=== PATIENT | female | born 1985 | race Two or more races ===

== ENCOUNTER 2024-11-08 05:45 | Inpatient (IN) ==
--- NOTE | 2024-10-28 09:33 | Anesthesiology Consultation ---
Date of Service October 28, 2024 Assessment & Plan (1) Encounter for pre-operative examination: - Infectious disease screening: Per assessment on 10/28/24- No known recent infectious disease contacts or current infectious disease symptoms. - Audit Senior Associate needed: [place] (Marita with [facility] made aware) Chart Review Chart Review: data entry associate initiated History Surgery Operation Date: 11/08/24 09:05 Proposed Procedures p Section in LD (Delivery of baby through Abdominal incision) - Daniel Yeboah MD Height/Weight Height: 5 ft 2.99 in Weight: 94.801 kg Allergies Allergy/AdvReac Type Severity Reaction Status Date / Time keflex Allergy Mild Rash Uncoded 10/28/24 09:06 Medications Home Medications Medication Instructions Recorded Confirmed Last Taken cholecalciferol (vitamin D3) 1 tab PO DAILY 10/07/24 10/28/24 Unknown [Vitamin D3] mecobalamin (vitamin B12) 1 tab PO DAILY 10/07/24 10/28/24 Unknown prenat.vits,julieth,yrx-qojj-edadr 1 tab PO DAILY 10/07/24 10/28/24 Unknown labetalol 200 mg tablet 200 mg PO BID #180 tabs 10/09/24 10/28/24 Unknown nitrofurantoin 100 mg PO BID 7 days #14 caps 10/25/24 10/28/24 Unknown monohydrate/macrocrystals 100 mg capsule (Macrobid) Past Medical History Medical History Gestational diabetes diet controlled History of COVID-19 (2020) resolved HTN (hypertension) UTI (urinary tract infection) currently on abx Past Family History Family History Other Diabetes Hypertension No family history of adverse response to anesthesia Past Surgical History Surgical History No history of previous surgery Social History Smoking Status: Never smoker Do You Dip or Chew Tobacco: No Hx Alcohol Use: No Hx Substance Use: No substance use type: does not use
[2024-11-08] MEDS: LACTATED RINGER'S 1,000 ML IV SCH (06:02)
[2024-11-08 06:32] LABS: Hematocrit (blood only) 38.1 % (37.0-47.0); Hemoglobin 13.1 g/dl (12.0-16.0); Mean Corpuscular Hemoglobin 28.4 pg (25.0-34.0); Mean Corpuscular Volume 82.6 fL (80.0-100.0); Platelet Count 279 K/uL (130-400); RDW Standard Deviation 39.0 fL (36.4-46.3); Red Blood Count 4.61 M/uL (4.20-5.40); White Blood Count 10.88 K/ul (4.8-10.8)
[2024-11-08] MEDS: ACETAMINOPHEN 500 MG TAB PO SCH (06:33)
[2024-11-08] MEDS ORDERED: PHENYLEPHRINE HCL 10 MG/ML VIAL ONE (06:35)
[2024-11-08] MEDS ORDERED: MoRPHine SULFATE PF 1 MG/ML 10 ML AMP/VIAL ONE (06:35)
[2024-11-08] MEDS ORDERED: OXYTOCIN 10 UNITS/ML VIAL ONE ×3 (06:42)
[2024-11-08] MEDS: CITRIC ACID/SODIUM CITRATE 15 ML UDC PO SCH (07:25)
--- NOTE | 2024-11-08 07:25 | History & Physical Report ---
Date of Service November 08, 2024 Assessment & Plan (1) Encounter for pre-operative examination: Plan: 39 yo at 37w5d for primary for Breech and cHTN. Consents reviewed and signed. (2) Chronic hypertension affecting : (3) Gestational diabetes mellitus (GDM) affecting , antepartum: (4) Supervision of elderly primigravida: (5) Breech presentation: Admission and Anticipated Discharge Date Admission Date: November 08, 2024 History of Present Illness Primary Care Provider: NO PCP 39yo at 37.5 weeks GA presents for for breech presentation. AMA>40@del *Anatomy Scan @ 20wks * Echo 22-24wksNormal *Growth scan @32wks *Weekly NST's @36 wks *Twice weekly NST @38wks *Weekly KONSTANTIN's @38wks *Deliver by 40 wks GDM *Begin monthly Growth US's Transfer of care at 33 weeks CHTN *Baby ASA daily start 12-28 wks, continue until delivery *wkly NST's @32wks and twice wkly @36 wks *Serial Growth US @ 24 (doppler only if abnml) *Baseline 24hr urine (additioinal PRN) *weekly KONSTANTIN's @ 32wk(If on Meds) *Deliver [id number] (If on Meds) *Deliver [id number] (Not on Meds) BREECH PRESENTATION C/S SCHEDULED FOR 11/08/[address] DEL REAL moderate right renal pelvis dilation--12.3mm at 36 2/7 GBS Positive *Treat in Labor Initial OB Labs Blood Type & RH O positive Antibody Screen HCT/HGB45.9/14.10 [id number] Hep C IgG 13yrs+ Old Pap Test Chlamydia Gonorrhea Rubellaimmune RPRnon reactive Urine Culture/Screen HBsAgnon reactive HIVnegative MCV82.5 NT UltrasoundNormal 24-28 Week OB Labs (07/28/24) HCT/HGB42.0/14.1 Diabetes Screen (1hr)96 24 hr urine total [id number] Echo- Normal GBS positive Allergies Allergy/AdvReac Type Severity Reaction Status Date / Time cephalexin Allergy Mild Rash Verified 11/08/24 06:44 Home Medications Medication Instructions Recorded Confirmed Type cholecalciferol (vitamin D3) 1 tab PO DAILY 10/07/24 11/08/24 History [Vitamin D3] mecobalamin (vitamin B12) 1 tab PO DAILY 10/07/24 11/08/24 History prenat.vits,julieth,sex-cfrz-ajriv 1 tab PO DAILY 10/07/24 11/08/24 History labetalol 200 mg tablet 200 mg PO BID #180 tabs 10/09/24 11/08/24 Rx Patient History Medical History Gestational diabetes diet controlled History of COVID-19 (2020) resolved HTN (hypertension) UTI (urinary tract infection) currently on abx Surgical History No history of previous surgery Family History Other Diabetes Hypertension No family history of adverse response to anesthesia Social History Smoking Status: Never smoker Second Hand Exposure: No; Do You Dip or Chew Tobacco: No; Tobacco Cessation Education Requested by Patient: No Hx Alcohol Use: No Hx Substance Use: No Preferred Language: Bruneian Communication Ability: Effective Communication Ability Comment: site interpreter required Chemical Supervisor Required: Yes Beliefs That Will Affect Care: None marital status: marital status details: Erin (34) [phone] Current Living Situation: Spouse Current Living Situation Comment: Apartment with current occupational status: unemployed Other Information That Helps Us Care for You: No Feels Safe at Home: Yes Safety Concerns: Feels Safe At This Time Assistive Devices: None Assistive Devices Comment: reading glasses Physical Exam Genitourinary: OB Exam Monitor Tracing: + external FHT monitor used, + external uterine monitor used, + category I and + normal FHT variability Results & Data Vital Signs (Past 12 Hours) Vital Signs Temp Pulse Resp BP O2 Del Method 11/08/24 07:08 81 140/86 11/08/24 06:12 36.9 C 18 Room Air 11/08/24 05:53 36.9 C 87 18 137/90 Coding Level of Care Code None Diagnoses Encounter for pre-operative examination Z01.818 Chronic hypertension affecting O10.919 Gestational diabetes mellitus (GDM) affecting , antepartum O24.419 Encounter for supervision of primigravida of advanced maternal age in third trimester O09.513 Trimester: third trimester Breech presentation O32.1XX0 (4) Supervision of elderly primigravida Trimester: third trimester Qualified Code(s): O09.513 - Supervision of elderly primigravida, third trimester
[2024-11-08] MEDS: CLINDAMYCIN/D5W 900 MG/50 ML BAG IV STA (07:32)
[2024-11-08] MEDS ORDERED: GENTAMICIN CONSULT ACTIVE PRN (08:00)
[2024-11-08] MEDS ORDERED: diphenhydrAMINE 50 MG/ML VIAL IV PRN (08:10)
[2024-11-08] MEDS ORDERED: NALOXONE HCL 0.4 MG/1 ML VIAL/CARP IV PRN (08:10)
[2024-11-08] MEDS ORDERED: LACTATED RINGER'S 500 ML IV PRN (08:10)
[2024-11-08] MEDS ORDERED: NALOXONE HCL 0.08 MG in SYRINGE 1.8 ML IV PRN (08:10)
[2024-11-08] MEDS ORDERED: NALBUPHINE HCL INJ 10 MG/ML AMP IV PRN (08:10)
[2024-11-08] MEDS ORDERED: NALOXONE HCL 1 MG in SODIUM CHLORIDE 0.9% 1,000 ML IV PRN (08:10)
[2024-11-08] MEDS ORDERED: HYDROmorphone INJ 0.5 MG/0.5 ML SYR IV PRN (08:10)
[2024-11-08] MEDS ORDERED: ONDANSETRON INJ 2 MG/ML 2 ML VIAL IV PRN (08:10)
[2024-11-08] MEDS ORDERED: ONDANSETRON INJ 2 MG/ML 2 ML VIAL ONE (08:11)
[2024-11-08] MEDS ORDERED: DC INTRASPINAL MORPHINE SCH (08:15)
[2024-11-08] MEDS ORDERED: NO NARCOTICS OR SEDATIVES SCH (08:15)
[2024-11-08] MEDS ORDERED: CALCIUM CARBONATE 500 MG CHEWABLE TAB PO PRN (08:38)
[2024-11-08] MEDS ORDERED: BENZOCAINE 20% SPRY 85 APPLN/85 GM CAN EXT PRN (08:38)
[2024-11-08] MEDS ORDERED: HYDROCORTISONE ACETATE 25 MG SUPP PR PRN (08:38)
[2024-11-08] MEDS ORDERED: MAGNESIUM HYDROXIDE SUSP 30 ML UDC PO PRN (08:38)
[2024-11-08] MEDS ORDERED: DIPHTHER/TETAN/PERTUS Vaccine (Tdap, Adol/Adult) 0.5mL IM ONE (08:38)
[2024-11-08] MEDS ORDERED: SENNA 8.6 MG TAB PO PRN (08:38)
--- NOTE | 2024-11-08 08:42 | Operative Report ---
Post Operative Report Pre & Post Diagnosis Operation Date: 11/08/24 07:30 Pre-Op Diagnosis: Breech Presentation, Chronic Hypertension affecting Post-Op Diagnosis: Same; delivery of a live male at 0801 I identified the patient and participated in the time-out.: Yes Procedure Operation Date: 11/08/24 07:30 <No data on this case meets the specified criteria> Surgeon Daniel Yeboah MD Clerk Of Scales Nursing staff I attest to the content of the Intraoperative Record and any orders documented therein. Any exceptions are noted below.
[2024-11-08] MEDS ORDERED: LACTATED RINGER'S 1,000 ML IV SCH (08:45)
[2024-11-08] MEDS: OXYTOCIN 20 UNITS/LR 1,002 ML IV SCH (08:50)
[2024-11-08] MEDS: GENTAMICIN SULFATE 470 MG in DEXTROSE 5% 100 ML IV ONE (08:50)
[2024-11-08] MEDS: KETOROLAC 30 MG/ML VIAL IV SCH (09:16)
--- NOTE | 2024-11-08 10:33 | Anesthesiology Progress Note ---
Date of Service November 08, 2024 Anesthesia Post Procedure Vital Signs Vital Signs: Temp Pulse Resp BP Pulse Ox O2 Del Method 11/08/24 10:27 79 99 11/08/24 10:22 68 98 11/08/24 10:17 94 H 97 11/08/24 10:15 79 108/64 11/08/24 10:12 86 98 11/08/24 10:07 75 97 11/08/24 10:05 73 108/61 11/08/24 10:02 87 97 11/08/24 09:57 87 97 11/08/24 09:55 82 103/57 L 11/08/24 09:52 91 H 97 11/08/24 09:50 16 11/08/24 09:50 16 11/08/24 09:47 69 97 11/08/24 09:45 75 94/53 L 11/08/24 09:42 71 97 11/08/24 09:40 16 11/08/24 09:37 69 98 11/08/24 09:36 77 103/59 L 11/08/24 09:32 72 98 11/08/24 09:30 16 11/08/24 09:27 75 98 11/08/24 09:22 68 97 11/08/24 09:20 16 11/08/24 09:17 70 97 11/08/24 09:15 77 107/60 11/08/24 09:12 103 H 98 11/08/24 09:10 16 11/08/24 09:07 84 98 11/08/24 09:05 76 110/65 11/08/24 09:02 71 98 11/08/24 09:00 16 11/08/24 08:58 71 109/58 L 11/08/24 08:57 79 98 11/08/24 08:52 73 95 11/08/24 08:50 36.4 C L 16 11/08/24 08:49 74 94 11/08/24 08:47 73 96 11/08/24 08:42 76 97 11/08/24 08:41 75 125/69 11/08/24 07:15 36.5 C 11/08/24 07:08 81 140/86 11/08/24 06:12 36.9 C 18 Room Air 11/08/24 05:53 36.9 C 87 18 137/90 Notes Mental Status: alert / awake / arousable Patient Amnestic to Procedure: Yes Nausea / Vomiting: adequately controlled Pain: adequately controlled Airway Patency, RR, SpO2: stable & adequate BP & HR: stable & adequate Hydration State: stable & adequate Neuraxial Anesthesia: was administered and sensory block is resolving Anesthetic Complications: no major complications apparent
[2024-11-08] MEDS: LABETALOL HCL 200 MG TAB PO SCH (11:36)
[2024-11-08] MEDS: ACETAMINOPHEN 325 MG TAB PO SCH (14:23)
[2024-11-08] MEDS: SIMETHICONE 80 MG CHEW PO SCH (14:23)
[2024-11-08] MEDS: DOCUSATE SODIUM 100 MG CAP PO SCH (20:59)
[2024-11-09] MEDS ORDERED: HYDROmorphone INJ 0.5 MG/0.5 ML SYR IV PRN (02:11)
[2024-11-09] MEDS ORDERED: diphenhydrAMINE Capsule 25 MG CAP PO PRN (02:11)
[2024-11-09] MEDS ORDERED: PROMETHAZINE 12.5 MG/50.5 ML BAG IV PRN (02:11)
[2024-11-09] MEDS ORDERED: diphenhydrAMINE 50 MG/ML VIAL IV PRN (02:11)
[2024-11-09] MEDS ORDERED: ONDANSETRON INJ 2 MG/ML 2 ML VIAL IV PRN (02:11)
--- NOTE | 2024-11-09 06:39 | Obstetrical Progress Note ---
Date of Service November 09, 2024 Assessment & Plan (1) Breech presentation: (2) Chronic hypertension affecting : (3) Gestational diabetes mellitus (GDM) affecting , antepartum: (4) Supervision of elderly primigravida: Plan Assessment and plan 39 yo post- day 1 s/p Fells well today. Vital signs stable Continue post- care Encourage ambulation and Pain controlled with ibuprofen Discharge home tomorrow, follow up with in 6 weeks. Admission and Anticipated Discharge Date Admission Date: November 08, 2024 Supervising Physician Co-Signing Physician Notes Resident Physician Supervision Note: I was present with Dr. Mccabe during the history and exam. I discussed the case with the resident and agree with the findings and plan as documented in the note. Any exceptions or clarifications are listed here: POD#1 doing well. Incision CDI. Pain controlled. Continue routine care. Documented By: Amna Landeros, DO Subjective 39 yo post- day 1 s/p Ambulation: ambulating normally Voiding: no voiding problems Passing Gas:: Yes Diet Tolerance:: regular diet Lochia:: Small Feeding Type:: breast and bottle feeding Current Pain Level: 3-4/10 while moving. Resting comfortably this AM in NAD. Denies MONTERO, CP, SOB, N/V/D, LE pain/swelling. Physical Exam Physical Exam: Post- PE General: patient resting comfortably, NAD, non-toxic in appearance, AA&O x 4, answers questions appropriately. Skin: warm, dry, intact HEENT: NC/AT, anicteric sclera, conjunctiva without injection, moist mucus membranes. Heart: +S1/S2, regular, no m/r/g Lungs: equal air entry bilaterally, no rales/rhonchi/wheezes Abd: +BS, soft, NT/ND, uterine fundus firm at umbilicus, caesarean incision C/D/I. Ext: warm, no clubbing/cyanosis or edema, Silverio's neg. Neuro: nonfocal, patient AA&O x 4, speech intact, no facial droop, moving all extremities on command. Results & Data Vital Signs (Past 12 Hours) Vital Signs Temp Pulse Resp BP Pulse Ox O2 Del Method 11/09/24 03:40 36.5 C 74 18 109/71 97 Room Air 11/09/24 02:00 18 97 11/09/24 01:01 18 96 11/09/24 00:00 16 96 11/08/24 23:20 36.6 C 80 18 105/70 97 Room Air 11/08/24 22:50 20 97 11/08/24 21:50 20 96 11/08/24 20:50 20 97 11/08/24 19:50 20 97 11/08/24 19:50 36.8 C 80 20 116/73 97 Room Air Resident Activity Tracking Resident Involvement: Resident Care Provided Care Provided: Adult Hospital Medicine (4) Supervision of elderly primigravida Trimester: third trimester Qualified Code(s): O09.513 - Supervision of elderly primigravida, third trimester
[2024-11-09] MEDS: FERROUS SULFATE 325 MG TAB PO SCH (07:33)
[2024-11-09] MEDS: PRENATAL VITAMIN 1 TAB PO SCH (07:34)
[2024-11-09 08:02] LABS: Hematocrit (blood only) 29.0 % (37.0-47.0); Hemoglobin 10.0 g/dl (12.0-16.0); Mean Corpuscular Hemoglobin 28.7 pg (25.0-34.0); Mean Corpuscular Volume 83.1 fL (80.0-100.0); Platelet Count 214 K/uL (130-400); RDW Standard Deviation 39.5 fL (36.4-46.3); Red Blood Count 3.49 M/uL (4.20-5.40); White Blood Count 10.03 K/ul (4.8-10.8)
[2024-11-09] MEDS ORDERED: KETOROLAC 30 MG/ML VIAL IV PRN (08:39)
[2024-11-09] MEDS: IBUPROFEN 600 MG TAB PO SCH (08:53)
[2024-11-09] MEDS: MoRPHine SULFATE PF 1 MG/ML 10 ML AMP/VIAL INT SPINAL ONE (16:52)
[2024-11-09] MEDS: SODIUM CHLORIDE 0.9% 1,000 ML IV SCH (16:52)
[2024-11-09] MEDS: INFLUENZA VACC TS2025-26(6m+)/PF (IIV3) 0.5mL Syr IM ONE (17:40)
[2024-11-10 06:27] LABS: Hematocrit (blood only) 28.4 % (37.0-47.0); Hemoglobin 10.0 g/dl (12.0-16.0)
--- NOTE | 2024-11-10 07:17 | Obstetrical Progress Note ---
Date of Service November 10, 2024 Assessment & Plan (1) Breech presentation: (2) Chronic hypertension affecting : (3) Gestational diabetes mellitus (GDM) affecting , antepartum: (4) Supervision of elderly primigravida: Plan Assessment and plan 39 yo post- day 2 s/p Fells well today. Vital signs stable Continue post- care Encourage ambulation and Pain controlled with ibuprofen Discharge home tomorrow, follow up with in 6 weeks. Admission and Anticipated Discharge Date Admission Date: November 08, 2024 Supervising Physician Co-Signing Physician Notes Resident Physician Supervision Note: I was present with Dr. Mccabe during the history and exam. I discussed the case with the resident and agree with the findings and plan as documented in the note. Any exceptions or clarifications are listed here: [None] Documented By: Josie Fournier MD, FACOG Subjective 39 yo post- day 2 s/p Ambulation: ambulating normally Voiding: no voiding problems Passing Gas:: Yes Diet Tolerance:: regular diet Lochia:: Small Feeding Type:: breast and bottle feeding Current Pain Level: 4-5/10 while moving. Resting comfortably this AM in NAD. Denies MONTERO, CP, SOB, N/V/D, LE pain/swelling. Review of Systems Review of Systems: As per HPI Physical Exam Physical Exam: Post- PE General: patient resting comfortably, NAD, non-toxic in appearance, AA&O x 4, answers questions appropriately. Skin: warm, dry, intact HEENT: NC/AT, anicteric sclera, conjunctiva without injection, moist mucus membranes. Heart: +S1/S2, regular, no m/r/g Lungs: equal air entry bilaterally, no rales/rhonchi/wheezes Abd: +BS, soft, NT/ND, uterine fundus firm at umbilicus, caesarean incision C/D/I. Ext: warm, no clubbing/cyanosis or edema, Silverio's neg. Neuro: nonfocal, patient AA&O x 4, speech intact, no facial droop, moving all extremities on command. Results & Data Vital Signs (Past 12 Hours) Vital Signs Temp Pulse Resp BP Pulse Ox O2 Del Method 11/10/24 03:30 129/84 11/10/24 00:55 36.6 C 89 18 113/74 96 Room Air 11/09/24 20:10 36.7 C 90 18 109/76 99 Room Air Resident Activity Tracking Resident Involvement: Resident Care Provided Care Provided: Adult Hospital Medicine (4) Supervision of elderly primigravida Trimester: third trimester Qualified Code(s): O09.513 - Supervision of elderly primigravida, third trimester
[2024-11-10] MEDS: IBUPROFEN 600 MG TAB PO PRN (09:22)
[2024-11-10] MEDS: ACETAMINOPHEN 325 MG TAB PO PRN (20:39)
[2024-11-11 00:09] VITALS: PULSE 85; TEMP 97.9
--- NOTE | 2024-11-11 07:27 | Obstetrical Progress Note ---
Date of Service November 11, 2024 Assessment & Plan (1) Breech presentation: (2) Chronic hypertension affecting : (3) Gestational diabetes mellitus (GDM) affecting , antepartum: (4) Supervision of elderly primigravida: Plan Assessment and plan 39 yo post- day 3 s/p Fells well today. Vital signs stable Continue post- care Encourage ambulation and Pain controlled with ibuprofen Discharge home today, follow up with in 6 weeks. Admission and Anticipated Discharge Date Admission Date: November 08, 2024 Supervising Physician Co-Signing Physician Notes Patient seen with resident and agree with above findings and plan. Stable for discharge Subjective 39 yo post- day 3 s/p Ambulation: ambulating normally Voiding: no voiding problems Passing Gas:: Yes Diet Tolerance:: regular diet Lochia:: Small Feeding Type:: breast and bottle feeding Current Pain Level: 1-2/10 while moving. Resting comfortably this AM in NAD. Denies MONTERO, CP, SOB, N/V/D, LE pain/swelling. Review of Systems Review of Systems: As per HPI Physical Exam Physical Exam: Post- PE General: patient resting comfortably, NAD, non-toxic in appearance, AA&O x 4, answers questions appropriately. Skin: warm, dry, intact HEENT: NC/AT, anicteric sclera, conjunctiva without injection, moist mucus membranes. Heart: +S1/S2, regular, no m/r/g Lungs: equal air entry bilaterally, no rales/rhonchi/wheezes Abd: +BS, soft, NT/ND, uterine fundus firm at umbilicus, caesarean incision C/D/I. Ext: warm, no clubbing/cyanosis or edema, Silverio's neg. Neuro: nonfocal, patient AA&O x 4, speech intact, no facial droop, moving all extremities on command. Results & Data Vital Signs (Past 12 Hours) Vital Signs Temp Pulse Resp BP Pulse Ox O2 Del Method 11/11/24 04:45 132/87 11/11/24 00:00 36.6 C 85 16 119/79 97 Room Air 11/10/24 21:00 36.7 C 88 20 136/83 98 Room Air Resident Activity Tracking Resident Involvement: Resident Care Provided Care Provided: Adult Hospital Medicine (4) Supervision of elderly primigravida Trimester: third trimester Qualified Code(s): O09.513 - Supervision of elderly primigravida, third trimester
[2024-11-11 08:19] VITALS: RESP 18; O2SAT 98
[2024-11-11 10:51] VITALS: BP 120/80
--- NOTE | 2024-11-12 16:33 | Operative Report ---
Post Operative Report Pre & Post Diagnosis Operation Date: 11/08/24 07:30 Pre-Op Diagnosis: Breech Presentation, Chronic Hypertension affecting Post-Op Diagnosis: Same; delivery of a live male at 0801 I identified the patient and participated in the time-out.: Yes Procedure Operation Date: 11/08/24 07:30 Actual Procedures p Section for living male child at 0801(Bilateral) - Daniel Yeboah MD Surgeon Daniel Yeboah MD Bariatric Coordinator OR staff Quantitative Blood Loss (QBL) per chart Findings Consistent with Post-Op Diagnosis Specimens Placenta Description of Procedure Patient was taken to the operating room after consents were ensured. Upon presentation she was identified. Anesthesia obtained and patient was prepped and draped in the normal sterile fashion. Preprocedure timeout was performed and the case was initiated. A Pfannenstiel incision was made with a knife. This was carried down to underlying fascia with the Bovie and blunt dissection. Fascia was nicked at the midline with a knife and was extended bluntly bilaterally. Abdomen was then entered bluntly and placed on stretch to provide adequate room for delivery. was noted to be in breech presentation presentation and a low transverse uterine incision was made with a knife. The uterine cavity was then entered bluntly and placed on stretch to provide adequate room for delivery. The caudal end of the was brought through the hysterotomy quickly followed by legs, shoulders, arms and head. Appropriate internal rotation at the hip and the shoulder was used to deliver legs and arms respectively. was noted be vigorous upon delivery and a 30 second delayed cord clamping was initiated after which the cord was doubly clamped and cut. Cord blood obtained and attention turned to deliver the placenta which delivered intact with gentle uterine massage and cord traction. Uterus was exteriorized and several passes made to remove any remaining membranes with a dry lap. Uterus was wrapped in a wet lap and the hysterotomy was reapproximated with 0 Vicryl in continuous running lock stitch. A second imbricating layer was then performed. The posterior cul-de-sac cleaned of clots and debris's. Hysterotomy was also noted to be hemostatic. Uterus returned to maternal abdomen and right left paracolic gutters cleaned of clots and debris's and hysterotomy reinspected. The muscle, fascia and subcutaneous layers were inspected and noted to be hemostatic. Fascia was reapproximated with 0 Vicryl in continuous running stitch. Subcutaneous layer reapproximated in 2 layers with 2-0 plain. Skin reapproximated 3-0 Vicryl in a subcuticular stitch. Dermabond placed on top. Needle sponge in instrument counts correct at the completion of the case. Both mother and stable in the immediate postdelivery timeframe. No complications noted and blood loss per QBL in chart. I attest to the content of the Intraoperative Record and any orders documented therein. Any exceptions are noted below. OB Procedure Charges [id number]
--- NOTE | 2024-11-16 12:33 | Discharge Summary ---
Date of Service November 16, 2024 Admission HPI Per Admitting Provider 39yo at 37.5 weeks GA presents for for breech presentation. AMA>40@del *Anatomy Scan @ 20wks * Echo 22-24wksNormal *Growth scan @32wks *Weekly NST's @36 wks *Twice weekly NST @38wks *Weekly KONSTANTIN's @38wks *Deliver by 40 wks GDM *Begin monthly Growth US's Transfer of care at 33 weeks CHTN *Baby ASA daily start 12-28 wks, continue until delivery *wkly NST's @32wks and twice wkly @36 wks *Serial Growth US @ 24 (doppler only if abnml) *Baseline 24hr urine (additioinal PRN) *weekly KONSTANTIN's @ 32wk(If on Meds) *Deliver [id number] (If on Meds) *Deliver [id number]-73d3A (Not on Meds) BREECH PRESENTATION C/S SCHEDULED FOR 11/08/[address] DEL REAL moderate right renal pelvis dilation--12.3mm at 36 2/7 GBS Positive *Treat in Labor Initial OB Labs Blood Type & RH O positive Antibody Screen HCT/HGB45.9/14.10 [id number] Hep C IgG 13yrs+ Old Pap Test Chlamydia Gonorrhea Rubellaimmune RPRnon reactive Urine Culture/Screen HBsAgnon reactive HIVnegative MCV82.5 NT UltrasoundNormal 24-28 Week OB Labs (07/28/24) HCT/HGB42.0/14.1 Diabetes Screen (1hr)96 24 hr urine total [id number] Echo- Normal GBS positive Discharge Data Consultations 11/08/24 05:55 Consult Anesthesiology Stat Procedures Performed Operation Date: 11/08/24 07:30 Actual Procedures p Section for living male child at 0801(Bilateral) - Daniel Del Real MD Hospital Course (1) Breech presentation: Patient currently scheduled section for breech presentation. Procedures performed without complication and recovered in house without issue. Discharged home in stable condition (2) Supervision of elderly primigravida: (3) Gestational diabetes mellitus (GDM) affecting , antepartum: Coding Level of Care Code None Diagnoses Breech presentation O32.1XX0 Encounter for supervision of primigravida of advanced maternal age in third trimester O09.513 Trimester: third trimester Gestational diabetes mellitus (GDM) affecting , antepartum O24.419
== END 2024-11-11 16:45 | disposition home or self-care (01) | DRG 787 ==
LOC: 4S1 05:45 → EDSTATUS 10:40 → 4E2 11:28
DX: O24.429 Gestational diabetes mellitus in childbirth, unspecified control; O32.1XX0 Maternal care for breech presentation, not applicable or unspecified; Z79.899 Other long term (current) drug therapy; Z3A.37 37 weeks gestation of pregnancy; Z37.0 Single live birth; Z88.1 Allergy status to other antibiotic agents; O10.92 Unspecified pre-existing hypertension complicating childbirth